=== PATIENT | female | born 1945 | race Caucasian/White ===

== ENCOUNTER → 2017-02-26 | Outpatient (CLI) | payer OTHER ==
[~2017-02-26] MED LIST: ACET-1256 PO; ALBU1AER9 INH; AMLO-110 PO; AZITTAB PO; CYCL0.05 OP; LISI40TA PO; PRD20 PO
--- NOTE | 2017-02-26 16:25 | MAMMOGRAPHY REPORT ---
BILATERAL DIGITAL SCREENING MAMMOGRAM WITH CAD: 02/26/2017 CLINICAL HISTORY: Routine screening examination. TECHNIQUE: Bilateral CC, MLO and repeat left MLO views were obtained. Current study was also evalua coleman with a Computer Aided Detection (CAD) system. COMPARISON: Comparison is made to exams dated: 02/22/2016 mammogram, 02/10/2014 mammogram, 02/18/2015 ma mmogram, 02/06/2013 mammogram, 02/06/2012 mammogram, and 02/02/2011 mammogram - [facility] enter. BREAST COMPOSITION: There are scattered areas of fibroglandular density in both breasts. FINDINGS: There are benign-appearing round microcalcifications scattered bilaterally. No suspicious mass, architectural distortion or cluster of suspicious microcalcifications is seen. IMPRESSION: ACR BI-RADS CATEGORY 1: NEGATIVE There is no mammographic evidence of malignancy. A 1 year screening mammogram is recommended. The p atient will receive written notification of the results. Approximately 10% of breast cancers are not detected with mammography. A negative mammographic repor t should not delay biopsy if a clinically suggestive mass is present. Denita Corona M.D. ay/:02/26/2017 15:00:44 Stonemason Helper: Sabrina MOORE(Vic)(Gerber), [facility] letter sent: Normal 1/2 BI-RADS Code: ACR BI-RADS Category 1: Negative
== END | disposition home or self-care (01) ==
LOC: C.MAMM 08:17
PROVIDERS: ATTEND Obstetrics & Gynecology
DX: Z12.31 Encounter for screening mammogram for malignant neoplasm of breast (principal)

== ENCOUNTER → 2018-02-27 | Outpatient (CLI) | payer OTHER ==
--- NOTE | 2018-02-28 07:57 | MAMMOGRAPHY REPORT ---
BILATERAL DIGITAL SCREENING MAMMOGRAM TOMOSYNTHESIS WITH CAD: 02/27/2018 CLINICAL HISTORY: Routine screening. Patient has no complaints. TECHNIQUE: Breast tomosynthesis in addition to standard 2D mammography was performed. Current study was also evaluated with a Computer Aided Detection (CAD) system. COMPARISON: Comparison is made to exams dated: 02/26/2017 mammogram, 02/22/2016 mammogram, 02/18/2015 khang mogram, 02/10/2014 mammogram, 02/06/2013 mammogram, and 02/06/2012 mammogram - [facility]. BREAST COMPOSITION: There are scattered areas of fibroglandular density in both breasts. FINDINGS: No suspicious masses, calcifications, or areas of architectural distortion are noted in ei ther breast. There has been no significant interval change compared to prior exams. Scattered bilater al benign-appearing calcifications are not significantly changed. IMPRESSION: ACR BI-RADS CATEGORY 2: BENIGN There is no mammographic evidence of malignancy. A 1 year screening mammogram is recommended. The pa tient will receive written notification of the results. Approximately 10% of breast cancers are not detected with mammography. A negative mammographic report should not delay biopsy if a clinically suggestive mass is present. Barbara Johnson M.D. /:02/27/2018 14:36:34 Dye Range Feeder: Vic Kimbrough M, [facility] letter sent: Normal 1/2 BI-RADS Code: ACR BI-RADS Category 2: Benign
== END | disposition home or self-care (01) ==
LOC: C.MAMM 13:00
PROVIDERS: ATTEND Obstetrics & Gynecology
DX: Z12.31 Encounter for screening mammogram for malignant neoplasm of breast (principal)